=== PATIENT | female | born 1985 | race Caucasian/White ===

== ENCOUNTER 2017-07-08 20:17 | Emergency (ER) | payer MEDICAID ==
--- NOTE | 2017-07-08 21:12 | EDM.PDOC ---
ED HPI GENERAL MEDICAL PROBLEM - General Chief Complaint: Abdominal Pain Stated Complaint: ABDOMINAL PAIN Time Seen by Provider: 07/08/17 21:02 Source of Information: Reports: Patient History Limitations: Reports: No Limitations - History of Present Illness INITIAL COMMENTS - FREE TEXT/NARRATIVE: History of present illness: [2-year-old female comes in complaining of lower pelvic pain, urgency burning and frequency and concerns of being .] Review of systems: As per history of present illness and below otherwise all systems reviewed and negative. Past medical history: As per history of present illness and as reviewed below otherwise noncontributory. Surgical history: As per history of present illness and as reviewed below otherwise noncontributory. Social history: No reported history of drug or alcohol abuse. Family history: As per history of present illness and as reviewed below otherwise noncontributory. Physical exam: HEENT: Atraumatic, normocephalic, pupils reactive, negative for conjunctival pallor or scleral icterus, mucous membranes moist, throat clear, neck supple, nontender, trachea midline. Lungs: Clear to auscultation, breath sounds equal bilaterally, chest nontender. Heart: S1S2, regular, negative for clicks, rubs, or JVD. Abdomen: Soft, nondistended, nontender. Negative for masses or hepatosplenomegaly. Negative for costovertebral tenderness. Pelvis: Stable nontender. Genitourinary: Deferred. Rectal: Deferred. Extremities: Atraumatic, negative for cords or calf pain. Neurovascular unremarkable. Neuro: Awake, alert, oriented. Cranial nerves II through XII unremarkable. Cerebellum unremarkable. Motor and sensory unremarkable throughout. Exam nonfocal. Diagnostics: [UA, urine hCG] Therapeutics: [] Impression: [#1 positive #2 UTI] Plan: [Antibiotic follow-up with PCP] Definitive disposition and diagnosis as appropriate pending reevaluation and review of above. Lower Abdominal Pain Score (Numeric/FACES): 5 - Related Data Allergies Allergy/AdvReac Type Severity Reaction Status Date / Time No Known Allergies Allergy Verified 07/08/17 20:49 Home Meds: Home Meds Albuterol [Ventolin HFA] 07/08/17 [History] ClonazePAM [KlonoPIN] 07/08/17 [History] Escitalopram [Lexapro] 07/08/17 [History] Nitrofurantoin Monohyd/M-Cryst [Macrobid 100 mg Capsule] 100 mg PO BID #20 capsule 07/08/17 [Rx] lamoTRIgine [Lamotrigine] 07/08/17 [History] risperiDONE [RisperiDAL] 07/08/17 [History] Past Medical History HEENT History: Reports: None Cardiovascular History: Reports: None Respiratory History: Reports: Asthma Gastrointestinal History: Reports: None Genitourinary History: Reports: None Musculoskeletal History: Reports: None Neurological History: Reports: Other (See Below) Other Neuro History: fibromyalgia Psychiatric History: Reports: ADHD, Bipolar, Depression Endocrine/Metabolic History: Reports: None Dermatologic History: Reports: None - Infectious Disease History Infectious Disease History: Reports: None - Past Surgical History HEENT Surgical History: Reports: None Respiratory Surgical History: Reports: None Musculoskeletal Surgical History: Reports: None Social & Family History - Tobacco Use Smoking Status *Q: Current Every Day Smoker Years of Tobacco use: 11 Packs/Tins Daily: 0.5 ED ROS GENERAL - Review of Systems Review Of Systems: See Below (See history of present illness) ED EXAM, GI/ABD - Physical Exam Exam: See Below (See history of present illness) Course - Vital Signs Last Recorded V/S: Last Vital Signs Temp 36.5 C 07/08/17 20:50 Pulse 87 07/08/17 20:50 Resp 16 07/08/17 20:50 BP 119/61 07/08/17 20:50 Pulse Ox 99 07/08/17 20:50 - Orders/Labs/Meds Orders: Active Orders 24 hr Category Date Time Status HCG QUALITATIVE,URINE [URCHEM] Stat Lab 07/08/17 20:46 Uncollected Labs: Laboratory Tests 07/08/17 Range/Units 20:35 Urine Color YELLOW Urine Appearance SLT CLOUDY Urine pH 5.5 (5.0-8.0) Ur Specific [place] >= 1.030 (1.001-1.035) Urine Protein NEGATIVE (NEGATIVE) mg/dL Urine Glucose (UA) NEGATIVE (NEGATIVE) mg/dL Urine Ketones TRACE H (NEGATIVE) mg/dL Urine Occult Blood SMALL H (NEGATIVE) Urine Nitrite NEGATIVE (NEGATIVE) Urine Bilirubin NEGATIVE (NEGATIVE) Urine Urobilinogen 0.2 (<2.0) EU/dL Ur Leukocyte Esterase TRACE (NEGATIVE) Urine RBC 1-3 (0-2/HPF) Urine WBC 10-15 (0-5/HPF) Ur Epithelial Cells MANY (NONE-FEW) Urine Bacteria FEW (NEGATIVE) Urine Mucus HEAVY (NONE-MOD) Departure - Departure Time of Disposition: 21:33 Disposition: Home, Self-Care 01 Condition: Good Clinical Impression: Abdominal pain, UTI (urinary tract infection) - Discharge Information Referrals: PCP,None [Primary Care Provider] - Additional Instructions: The following information is given to patients seen in the emergency department who are being discharged to home. This information is to outline your options for follow-up care. We provide all patients seen in our emergency department with a follow-up referral. The need for follow-up, as well as the timing and circumstances, are variable depending upon the specifics of your emergency department visit. If you don't have a primary care physician on staff, we will provide you with a referral. We always advise you to contact your personal physician following an emergency department visit to inform them of the circumstance of the visit and for follow-up with them and/or the need for any referrals to a consulting specialist. The emergency department will also refer you to a specialist when appropriate. This referral assures that you have the opportunity for follow-up care with a specialist. All of these measure are taken in an effort to provide you with optimal care, which includes your follow-up. Under all circumstances we always encourage you to contact your private physician who remains a resource for coordinating your care. When calling for follow-up care, please make the office aware that this follow-up is from your recent emergency room visit. If for any reason you are refused follow-up, please contact the [facility] Emergency Department at and asked to speak to the emergency department charge nurse. Take medication as directed Follow-up with PCP 1-2 days as directed Return to ED as needed as directed - My Orders Last 24 Hours: My Active Orders 07/08/17 20:46 HCG QUALITATIVE,URINE [URCHEM] Stat - Assessment/Plan Last 24 Hours: My Active Orders 07/08/17 20:46 HCG QUALITATIVE,URINE [URCHEM] Stat
== END 2017-07-08 21:45 | disposition home or self-care (01) ==
LOC: MW.ED 20:17
DX: N39.0 Urinary tract infection, site not specified (principal); Z32.01 Encounter for pregnancy test, result positive; F17.210 Nicotine dependence, cigarettes, uncomplicated
CPT/HCPCS: 81001; 81025; 99283; 99284

== ENCOUNTER 2017-07-24 03:49 | Emergency (ER) | payer MEDICAID ==
[2017-07-24] MEDS ORDERED: Sodium Chloride 0.9% 1,000 ML IV ONE (04:29)
--- NOTE | 2017-07-24 04:35 | EDM.PDOC ---
ED HPI GENERAL MEDICAL PROBLEM - General Stated Complaint: PT SAY SHE IS ABOUT 4WKS AND IS IN PAIN Time Seen by Provider: 07/24/17 06:48 - History of Present Illness INITIAL COMMENTS - FREE TEXT/NARRATIVE: HISTORY AND PHYSICAL: History of present illness: Patient 32-year-old female reports one month who presents with a concern of lower abdominal pain no vaginal bleeding no other complaints she denies trauma denies fever chills vomiting urinary symptoms or other concern Review of systems: As per history of present illness and below otherwise all systems reviewed and negative. Past medical history: As per history of present illness and as reviewed below otherwise noncontributory. Surgical history: As per history of present illness and as reviewed below otherwise noncontributory. Social history: No reported history of drug or alcohol abuse. Family history: As per history of present illness and as reviewed below otherwise noncontributory. Physical exam: HEENT: Atraumatic, normocephalic, pupils reactive, mild conjunctival pallor no scleral icterus, mucous membranes dry, throat clear, neck supple, nontender, trachea midline. Lungs: Clear to auscultation, breath sounds equal bilaterally, chest nontender. Heart: S1S2, regular, negative for clicks, rubs, or JVD. Abdomen: Soft, nondistended, no localized tenderness. Negative for masses or hepatosplenomegaly. Negative for costovertebral tenderness. Pelvis: Stable nontender. Genitourinary: Deferred. Rectal: Deferred. Extremities: Atraumatic, negative for cords or calf pain. Neurovascular unremarkable. Neuro: Awake, alert, oriented. Cranial nerves II through XII unremarkable. Cerebellum unremarkable. Motor and sensory unremarkable throughout. Exam nonfocal. Diagnostics: CBC CMP UA urine drug screen type and screen pelvic ultrasound Therapeutics: Normal saline 1 L bolus Impression: #1 first trimester #2 abdominal pain Definitive disposition and diagnosis as appropriate pending reevaluation and review of above. - Related Data Allergies Allergy/AdvReac Type Severity Reaction Status Date / Time No Known Allergies Allergy Verified 07/24/17 05:01 Home Meds: Home Meds Albuterol [Ventolin HFA] 1 inh INH BID PRN 07/08/17 [History] ClonazePAM [KlonoPIN] 1 mg PO DAILY 07/08/17 [History] Escitalopram [Lexapro] 10 mg PO DAILY PRN 07/08/17 [History] lamoTRIgine [Lamotrigine] 25 mg PO BID 07/08/17 [History] risperiDONE [RisperiDAL] 0.25 mg PO DAILY 07/08/17 [History] Past Medical History HEENT History: Reports: None Cardiovascular History: Reports: None Respiratory History: Reports: Asthma Gastrointestinal History: Reports: None Genitourinary History: Reports: None Musculoskeletal History: Reports: None Neurological History: Reports: Other (See Below) Other Neuro History: fibromyalgia Psychiatric History: Reports: ADHD, Bipolar, Depression Endocrine/Metabolic History: Reports: None Dermatologic History: Reports: None - Infectious Disease History Infectious Disease History: Reports: None - Past Surgical History HEENT Surgical History: Reports: None Respiratory Surgical History: Reports: None Musculoskeletal Surgical History: Reports: None Social & Family History - Tobacco Use Smoking Status *Q: Current Every Day Smoker Years of Tobacco use: 11 Packs/Tins Daily: 0.5 ED ROS GENERAL - Review of Systems Review Of Systems: ROS reveals no pertinent complaints other than HPI. ED EXAM, GENERAL - Physical Exam Exam: See Below (See dictation) Course - Vital Signs Last Recorded V/S: Last Vital Signs Temp 36.8 C 07/24/17 04:20 Pulse 86 07/24/17 04:20 Resp 19 07/24/17 04:20 BP 133/64 07/24/17 04:20 Pulse Ox 98 07/24/17 04:20 - Orders/Labs/Meds Orders: Active Orders 24 hr Category Date Time Status OB 1st Tri Sgl 1st Gest [US] Stat Exams 07/24/17 04:29 Taken Labs: Laboratory Tests 07/24/17 07/24/17 07/24/17 Range/Units 04:33 04:33 04:33 WBC 13.98 H (4.0-11.0) K/uL RBC 4.66 (4.30-5.90) M/uL Hgb 12.9 (12.0-16.0) g/dL Hct 38.5 (36.0-46.0) % MCV 82.6 (80.0-98.0) fL MCH 27.7 (27.0-32.0) pg MCHC 33.5 (31.0-37.0) g/dL RDW Std Deviation 38.9 (28.0-62.0) fl RDW Coeff of Ke[place] 13 (11.0-15.0) % Plt Count 278 (150-400) K/uL MPV 10.40 (7.40-12.00) fL Neut % (Auto) 71.3 (48.0-80.0) % Lymph % (Auto) 21.7 (16.0-40.0) % Saline % (Auto) 5.7 (0.0-15.0) % Eos % (Auto) 1.1 (0.0-7.0) % Baso % (Auto) 0.2 (0.0-1.5) % Neut # (Auto) 10.0 H (1.4-5.7) K/uL Lymph # (Auto) 3.0 H (0.6-2.4) K/uL Saline # (Auto) 0.8 (0.0-0.8) K/uL Eos # (Auto) 0.2 (0.0-0.7) K/uL Baso # (Auto) 0.0 (0.0-0.1) K/uL Nucleated RBC % 0.0 /100WBC Nucleated RBCs # 0 K/uL Sodium 140 (136-146) mmol/L Potassium 3.4 L (3.5-5.1) mmol/L Chloride 108 (98-110) mmol/L Carbon Dioxide 22 (21-31) mmol/L BUN 10 (6.0-23.0) mg/dL Creatinine 0.8 (0.6-1.5) mg/dL Est Cr Clr Drug Dosing TNP Estimated GFR (MDRD) > 60.0 ml/min Glucose 98 (60-110) mg/dL Calcium 9.3 (8.8-10.8) mg/dL Total Bilirubin 0.6 (0.1-1.5) mg/dL AST 13 (5-40) IU/L ALT 14 (8-54) IU/L Alkaline Phosphatase 58 (40-150) Total Protein 7.2 (6.0-8.0) g/dL Albumin 4.2 (3.5-5.0) g/dL Globulin 3.0 (2.0-3.5) g/dL Albumin/Globulin Ratio 1.4 (1.3-2.8) HCG, Quant 1422.0 mIU/mL Urine Color Urine Appearance Urine pH (5.0-8.0) Ur Specific [place] (1.001-1.035) Urine Protein (NEGATIVE) mg/dL Urine Glucose (UA) (NEGATIVE) mg/dL Urine Ketones (NEGATIVE) mg/dL Urine Occult Blood (NEGATIVE) Urine Nitrite (NEGATIVE) Urine Bilirubin (NEGATIVE) Urine Urobilinogen (<2.0) EU/dL Ur Leukocyte Esterase (NEGATIVE) Urine RBC (0-2/HPF) Urine WBC (0-5/HPF) Ur Epithelial Cells (NONE-FEW) Urine Bacteria (NEGATIVE) Urine Mucus (NONE-MOD) Urine Opiates Screen (NEGATIVE) Ur Oxycodone Screen (NEGATIVE) Urine Methadone Screen (NEGATIVE) Ur Barbiturates Screen (NEGATIVE) Ur Phencyclidine Scrn (NEGATIVE) Ur Amphetamine Screen (NEGATIVE) U Methamphetamines Scrn (NEGATIVE) U Benzodiazepines Scrn (NEGATIVE) U Cocaine Metab Screen (NEGATIVE) U Marijuana (THC) Screen (NEGATIVE) Blood Type O POSITIVE Antibody Screen NEGATIVE 07/24/17 07/24/17 Range/Units 05:58 05:58 WBC (4.0-11.0) K/uL RBC (4.30-5.90) M/uL Hgb (12.0-16.0) g/dL Hct (36.0-46.0) % MCV (80.0-98.0) fL MCH (27.0-32.0) pg MCHC (31.0-37.0) g/dL RDW Std Deviation (28.0-62.0) fl RDW Coeff of Keily (11.0-15.0) % Plt Count (150-400) K/uL MPV (7.40-12.00) fL Neut % (Auto) (48.0-80.0) % Lymph % (Auto) (16.0-40.0) % Saline % (Auto) (0.0-15.0) % Eos % (Auto) (0.0-7.0) % Baso % (Auto) (0.0-1.5) % Neut # (Auto) (1.4-5.7) K/uL Lymph # (Auto) (0.6-2.4) K/uL Saline # (Auto) (0.0-0.8) K/uL Eos # (Auto) (0.0-0.7) K/uL Baso # (Auto) (0.0-0.1) K/uL Nucleated RBC % /100WBC Nucleated RBCs # K/uL Sodium (136-146) mmol/L Potassium (3.5-5.1) mmol/L Chloride (98-110) mmol/L Carbon Dioxide (21-31) mmol/L BUN (6.0-23.0) mg/dL Creatinine (0.6-1.5) mg/dL Est Cr Clr Drug Dosing Estimated GFR (MDRD) ml/min Glucose (60-110) mg/dL Calcium (8.8-10.8) mg/dL Total Bilirubin (0.1-1.5) mg/dL AST (5-40) IU/L ALT (8-54) IU/L Alkaline Phosphatase (40-150) Total Protein (6.0-8.0) g/dL Albumin (3.5-5.0) g/dL Globulin (2.0-3.5) g/dL Albumin/Globulin Ratio (1.3-2.8) HCG, Quant mIU/mL Urine Color YELLOW Urine Appearance CLEAR Urine pH 6.0 (5.0-8.0) Ur Specific [place] 1.025 (1.001-1.035) Urine Protein NEGATIVE (NEGATIVE) mg/dL Urine Glucose (UA) NEGATIVE (NEGATIVE) mg/dL Urine Ketones 15 H (NEGATIVE) mg/dL Urine Occult Blood NEGATIVE (NEGATIVE) Urine Nitrite NEGATIVE (NEGATIVE) Urine Bilirubin NEGATIVE (NEGATIVE) Urine Urobilinogen 0.2 (<2.0) EU/dL Ur Leukocyte Esterase NEGATIVE (NEGATIVE) Urine RBC 0-2 (0-2/HPF) Urine WBC 1-2 (0-5/HPF) Ur Epithelial Cells FEW (NONE-FEW) Urine Bacteria FEW (NEGATIVE) Urine Mucus FEW (NONE-MOD) Urine Opiates Screen NEGATIVE (NEGATIVE) Ur Oxycodone Screen NEGATIVE (NEGATIVE) Urine Methadone Screen NEGATIVE (NEGATIVE) Ur Barbiturates Screen NEGATIVE (NEGATIVE) Ur Phencyclidine Scrn NEGATIVE (NEGATIVE) Ur Amphetamine Screen POSITIVE (NEGATIVE) U Methamphetamines Scrn NEGATIVE (NEGATIVE) U Benzodiazepines Scrn NEGATIVE (NEGATIVE) U Cocaine Metab Screen NEGATIVE (NEGATIVE) U Marijuana (THC) Screen POSITIVE (NEGATIVE) Blood Type Antibody Screen Meds: Medications Discontinued Medications Generic Name Dose Route Start Last Admin Trade Name Natasha PRN Reason Stop Dose Admin Sodium Chloride 1,000 mls @ 999 mls/hr 07/24/17 04:29 07/24/17 04:41 Normal Saline IV 07/24/17 05:29 999 mls/hr STAT ONE Administration Departure - Departure Time of Disposition: 06:48 Disposition: Eloped 07 Condition: Undetermined Clinical Impression: First trimester , Abdominal pain - Discharge Information Referrals: PCP,None [Primary Care Provider] - - My Orders Last 24 Hours: My Active Orders 07/24/17 04:29 OB 1st Tri Sgl 1st Gest [US] Stat - Assessment/Plan Last 24 Hours: My Active Orders 07/24/17 04:29 OB 1st Tri Sgl 1st Gest [US] Stat
[2017-07-24 04:59] LABS: CHLORIDE,CL 108 mmol/L (98-110); SODIUM,NA 140 mmol/L (136-146)
--- NOTE | 2017-07-24 14:44 | US ---
EXAM DATE: 07/24/17 PATIENT'S AGE: 32 Patient: LORE ECHAVARRIA Facility: [place], [place] : 1985 Study: OB Pelvis [id number] 5:35:11 AM Ordering Physician: Doctor Unger Final Report: INDICATION: Early , abdominal pain TECHNIQUE: Ultrasound OB pelvis transvaginal. Real-time boyd-scale imaging of the pelvis was performed. COMPARISON: None FINDINGS: Sonographic imaging demonstrates a round hypodensity within the uterus measuring 0.4 cm in diameter. The myometrium is normal in echogenicity. The ovaries are of normal size. There is normal venous and arterial flow in the left ovary. The right ovary demonstrates decreased venous and arterial waveforms. There are no suspicious fluid collections noted in the cul-de-sac. IMPRESSION: 1. Round hyperdensity within the uterus. This may represent a gestational sac which would correspond to a of 4 weeks 6 days. 2. Decreased venous and arterial waveforms in the right ovary. Ovarian torsion cannot be excluded. These findings were discussed with Dr. Corrales at 6:40am on 07/24/2017. Dictated by Teresa Pinon MD @ Jul 24 2017 6:23AM (Electronic Signature) Report Signed by Proxy. ANDRADE
== END 2017-07-24 06:48 | disposition left against medical advice (07) ==
LOC: MW.ED 03:49
DX: O99.89 Other specified diseases and conditions complicating pregnancy, childbirth and the puerperium (principal); R10.30 Lower abdominal pain, unspecified; O99.331 Smoking (tobacco) complicating pregnancy, first trimester; F17.210 Nicotine dependence, cigarettes, uncomplicated; Z79.899 Other long term (current) drug therapy; Z3A.01 Less than 8 weeks gestation of pregnancy
CPT/HCPCS: 36415; 76801; 80053; 80305; 81001; 84702; 85025; 86850; 86900; 86901; 99284; J7040; 99283

== ENCOUNTER 2017-08-02 20:26 | Emergency (ER) | payer MEDICAID ==
--- NOTE | 2017-08-02 20:36 | EDM.PDOC ---
<Deyvi Campos - Last Filed: 08/02/17 22:03> ED HPI GENERAL MEDICAL PROBLEM - General Chief Complaint: [employer] Problem Stated Complaint: 5 WEEKS/BLEEDING Time Seen by Provider: 08/02/17 20:31 Source of Information: Reports: Patient History Limitations: Reports: No Limitations - History of Present Illness INITIAL COMMENTS - FREE TEXT/NARRATIVE: History of present illness: [32-year-old female comes in with complaints of vaginal bleeding and extreme cramping. Patient indicates she is approximately 5 weeks and has been cramping and bleeding and saturating a pad an hour through today.] Review of systems: As per history of present illness and below otherwise all systems reviewed and negative. Past medical history: As per history of present illness and as reviewed below otherwise noncontributory. Surgical history: As per history of present illness and as reviewed below otherwise noncontributory. Social history: No reported history of drug or alcohol abuse. Family history: As per history of present illness and as reviewed below otherwise noncontributory. Physical exam: HEENT: Atraumatic, normocephalic, pupils reactive, negative for conjunctival pallor or scleral icterus, mucous membranes moist, throat clear, neck supple, nontender, trachea midline. Lungs: Clear to auscultation, breath sounds equal bilaterally, chest nontender. Heart: S1S2, regular, negative for clicks, rubs, or JVD. Abdomen: Slightly firm exquisitely tender abdomen. Pt indicates it is a stabbing cramp like pain. Unable to appreciate masses or hepatospleenomegaly. Pelvis: Stable nontender. Genitourinary: Deferred. Rectal: Deferred. Extremities: Atraumatic, negative for cords or calf pain. Neurovascular unremarkable. Neuro: Awake, alert, oriented. Cranial nerves II through XII unremarkable. Cerebellum unremarkable. Motor and sensory unremarkable throughout. Exam nonfocal. Rh is noted to be positive from previous test muscle repeat testing will not be performed this visit. Diagnostics: [CBC, CMP, serum quantitative, transvaginal ultrasound] Therapeutics: [IV fluid, morphine, Zofran, Ativan, Dilaudid] Impression: [Spontaneous AB] Plan: [Follow-up with [employer]] Definitive disposition and diagnosis as appropriate pending reevaluation and review of above. - Related Data Allergies Allergy/AdvReac Type Severity Reaction Status Date / Time No Known Allergies Allergy Verified 08/02/17 20:35 Home Meds: Home Meds Albuterol [Ventolin HFA] 1 inh INH BID PRN 07/08/17 [History] ClonazePAM [KlonoPIN] 1 mg PO DAILY 07/08/17 [History] Escitalopram [Lexapro] 10 mg PO DAILY PRN 07/08/17 [History] lamoTRIgine [Lamotrigine] 25 mg PO BID 07/08/17 [History] risperiDONE [RisperiDAL] 0.25 mg PO DAILY 07/08/17 [History] Past Medical History HEENT History: Reports: None Cardiovascular History: Reports: None Respiratory History: Reports: Asthma Gastrointestinal History: Reports: None Genitourinary History: Reports: None [employer] History: Reports: Musculoskeletal History: Reports: None Neurological History: Reports: Other (See Below) Other Neuro History: fibromyalgia Psychiatric History: Reports: ADHD, Bipolar, Depression Endocrine/Metabolic History: Reports: None Dermatologic History: Reports: None - Infectious Disease History Infectious Disease History: Reports: None - Past Surgical History HEENT Surgical History: Reports: None Respiratory Surgical History: Reports: None Musculoskeletal Surgical History: Reports: None Social & Family History - Family History Family Medical History: Noncontributory - Tobacco Use Smoking Status *Q: Current Every Day Smoker Years of Tobacco use: 11 Packs/Tins Daily: 0.5 Second Hand Smoke Exposure: No - Caffeine Use Caffeine Use: Reports: None - Recreational Drug Use Recreational Drug Use: No ED ROS GENERAL - Review of Systems Review Of Systems: See Below (History of present illness) ED EXAM, GENERAL - Physical Exam Exam: See Below (See history of present illness) Course - Vital Signs Last Recorded V/S: Last Vital Signs Temp 37.8 C 08/02/17 20:31 Pulse 91 08/02/17 21:52 Resp 18 08/02/17 21:52 BP 137/86 08/02/17 21:52 Pulse Ox 99 08/02/17 21:52 - Orders/Labs/Meds Orders: Active Orders 24 hr Category Date Time Status OB 1st Tri Sgl 1st Gest [US] Stat Exams 08/02/17 20:29 Taken Labs: Laboratory Tests 08/02/17 08/02/17 08/02/17 Range/Units 20:40 20:40 20:40 WBC 14.12 H (4.0-11.0) K/uL RBC 4.94 (4.30-5.90) M/uL Hgb 13.8 (12.0-16.0) g/dL Hct 41.7 (36.0-46.0) % MCV 84.4 (80.0-98.0) fL MCH 27.9 (27.0-32.0) pg MCHC 33.1 (31.0-37.0) g/dL RDW Std Deviation 41.0 (28.0-62.0) fl RDW Coeff of Keily 14 (11.0-15.0) % Plt Count 360 (150-400) K/uL MPV 10.10 (7.40-12.00) fL Neut % (Auto) 68.6 (48.0-80.0) % Lymph % (Auto) 24.2 (16.0-40.0) % Walton % (Auto) 6.2 (0.0-15.0) % Eos % (Auto) 0.8 (0.0-7.0) % Baso % (Auto) 0.2 (0.0-1.5) % Neut # (Auto) 9.7 H (1.4-5.7) K/uL Lymph # (Auto) 3.4 H (0.6-2.4) K/uL Walton # (Auto) 0.9 H (0.0-0.8) K/uL Eos # (Auto) 0.1 (0.0-0.7) K/uL Baso # (Auto) 0.0 (0.0-0.1) K/uL Nucleated RBC % 0.0 /100WBC Nucleated RBCs # 0 K/uL HCG, Quant 780.0 mIU/mL Urine Color YELLOW Urine Appearance SLT CLOUDY Urine pH 6.0 (5.0-8.0) Ur Specific Margaret 1.025 (1.001-1.035) Urine Protein TRACE (NEGATIVE) mg/dL Urine Glucose (UA) NEGATIVE (NEGATIVE) mg/dL Urine Ketones NEGATIVE (NEGATIVE) mg/dL Urine Occult Blood LARGE H (NEGATIVE) Urine Nitrite NEGATIVE (NEGATIVE) Urine Bilirubin NEGATIVE (NEGATIVE) Urine Urobilinogen 0.2 (<2.0) EU/dL Ur Leukocyte Esterase SMALL (NEGATIVE) Urine RBC 40-50 (0-2/HPF) Urine WBC 8-10 (0-5/HPF) Ur Epithelial Cells MANY (NONE-FEW) Urine Bacteria FEW (NEGATIVE) Urine Mucus HEAVY (NONE-MOD) Urine Opiates Screen (NEGATIVE) Ur Oxycodone Screen (NEGATIVE) Urine Methadone Screen (NEGATIVE) Ur Barbiturates Screen (NEGATIVE) Ur Phencyclidine Scrn (NEGATIVE) Ur Amphetamine Screen (NEGATIVE) U Methamphetamines Scrn (NEGATIVE) U Benzodiazepines Scrn (NEGATIVE) U Cocaine Metab Screen (NEGATIVE) U Marijuana (THC) Screen (NEGATIVE) 08/02/17 Range/Units 20:40 WBC (4.0-11.0) K/uL RBC (4.30-5.90) M/uL Hgb (12.0-16.0) g/dL Hct (36.0-46.0) % MCV (80.0-98.0) fL MCH (27.0-32.0) pg MCHC (31.0-37.0) g/dL RDW Std Deviation (28.0-62.0) fl RDW Coeff of Keily (11.0-15.0) % Plt Count (150-400) K/uL MPV (7.40-12.00) fL Neut % (Auto) (48.0-80.0) % Lymph % (Auto) (16.0-40.0) % Walton % (Auto) (0.0-15.0) % Eos % (Auto) (0.0-7.0) % Baso % (Auto) (0.0-1.5) % Neut # (Auto) (1.4-5.7) K/uL Lymph # (Auto) (0.6-2.4) K/uL Walton # (Auto) (0.0-0.8) K/uL Eos # (Auto) (0.0-0.7) K/uL Baso # (Auto) (0.0-0.1) K/uL Nucleated RBC % /100WBC Nucleated RBCs # K/uL HCG, Quant mIU/mL Urine Color Urine Appearance Urine pH (5.0-8.0) Ur Specific Margaret (1.001-1.035) Urine Protein (NEGATIVE) mg/dL Urine Glucose (UA) (NEGATIVE) mg/dL Urine Ketones (NEGATIVE) mg/dL Urine Occult Blood (NEGATIVE) Urine Nitrite (NEGATIVE) Urine Bilirubin (NEGATIVE) Urine Urobilinogen (<2.0) EU/dL Ur Leukocyte Esterase (NEGATIVE) Urine RBC (0-2/HPF) Urine WBC (0-5/HPF) Ur Epithelial Cells (NONE-FEW) Urine Bacteria (NEGATIVE) Urine Mucus (NONE-MOD) Urine Opiates Screen NEGATIVE (NEGATIVE) Ur Oxycodone Screen NEGATIVE (NEGATIVE) Urine Methadone Screen NEGATIVE (NEGATIVE) Ur Barbiturates Screen NEGATIVE (NEGATIVE) Ur Phencyclidine Scrn NEGATIVE (NEGATIVE) Ur Amphetamine Screen POSITIVE (NEGATIVE) U Methamphetamines Scrn NEGATIVE (NEGATIVE) U Benzodiazepines Scrn NEGATIVE (NEGATIVE) U Cocaine Metab Screen NEGATIVE (NEGATIVE) U Marijuana (THC) Screen POSITIVE (NEGATIVE) Meds: Medications Discontinued Medications Generic Name Dose Route Start Last Admin Trade Name Freq PRN Reason Stop Dose Admin Hydromorphone HCl 2 mg 08/02/17 21:32 08/02/17 21:40 Dilaudid IVPUSH 08/02/17 21:33 2 mg ONETIME ONE Administration Prochlorperazine Edisylate 10 52 mls @ 150 mls/hr 08/02/17 21:33 mg/ Sodium Chloride IV 08/02/17 21:53 ONETIME ONE Lorazepam 2 mg 08/02/17 21:36 08/02/17 21:40 Ativan IVPUSH 08/02/17 21:37 2 mg ONETIME ONE Administration Morphine Sulfate 2 mg 08/02/17 20:38 08/02/17 20:49 Morphine IVPUSH 08/02/17 20:39 2 mg ONETIME ONE Administration Ondansetron HCl 4 mg 08/02/17 20:38 08/02/17 20:49 Zofran IVPUSH 08/02/17 20:39 4 mg ONETIME ONE Administration Departure - Departure Disposition: Home, Self-Care 01 Clinical Impression: Missed ab - Discharge Information Referrals: PCP,None [Primary Care Provider] - Forms: ED Department Discharge Additional Instructions: The following information is given to patients seen in the emergency department who are being discharged to home. This information is to outline your options for follow-up care. We provide all patients seen in our emergency department with a follow-up referral. The need for follow-up, as well as the timing and circumstances, are variable depending upon the specifics of your emergency department visit. If you don't have a primary care physician on staff, we will provide you with a referral. We always advise you to contact your personal physician following an emergency department visit to inform them of the circumstance of the visit and for follow-up with them and/or the need for any referrals to a consulting specialist. The emergency department will also refer you to a specialist when appropriate. This referral assures that you have the opportunity for followup care with a specialist. All of these measure are taken in an effort to provide you with optimal care, which includes your followup. Under all circumstances we always encourage you to contact your private physician who remains a resource for coordinating your care. When calling for followup care, please make the office aware that this follow-up is from your recent emergency room visit. If for any reason you are refused follow-up, please contact the [facility] emergency department at and ask to speak to the emergency department charge nurse. [facility] [address] [address] Please go for a repeat blood tests as we discussed in 2 days. Please call and follow-up with Dr. Badillo in our clinic using resources to given to above. Please use pain medications, Everly, as prescribed as well as [id number] ibuprofen and return to ER if he started passing heavy clots or tissue and as needed and as discussed. <Faby Salas - Last Filed: 08/02/17 23:53> ED HPI GENERAL MEDICAL PROBLEM - History of Present Illness INITIAL COMMENTS - FREE TEXT/NARRATIVE: This is Dr. Salas dictating an addendum note as the supervising physician on this case and I assumed care of this case at 2200 hrs. I've reviewed the prior visit here on July 24 or she presented with and abdominal pain and at that point she had a WBC count of 13.9, hemoglobin of 12.9 and a serum quantitative hCG of 1422 as well as a blood type of O+. Her ultrasound at that time did indicate a small structure which was believed to be a gestational sac sac although there were no identifying markers and there was some question of decreased blood flow to the right ovary. At that point was recommended that the patient be seen by gynecology at the patient did not stay for that visit. She returns today with the above history. As her serum quantitative hCG is falling this is obviously not progressing. On my personal exam patient did have some diffuse tenderness but there was no rebound or guarding. On pelvic exam there was normal external genitalia and a scant amount of red blood in the vault and the os was closed and there was no tissue. Ultrasound was performed which revealed good blood flow to both ovaries and there still is a small gestational sac seen without any pole or cardiac activity which corresponds to 5 weeks 0 days. This is likely a failed and the patient will be advised to follow-up with our clinic and have serial Quant hCG's to document its fall to 0. As the flow to both ovaries is improved the patient can be discharged home. Will prescribe her a few pain pills and stressed to her need for follow-up. [id number]: I discussed this case with Dr. Badillo and he will follow the patient the clinic. I will give her a prescription to have her blood test repeated and advised her on reasons to return. Please addend the impression listed by the nurse practitioner to read: Failed , missed AB Abdominal Pain Score (Numeric/FACES): 8 ED ROS GENERAL - Review of Systems Review Of Systems: ROS reveals no pertinent complaints other than HPI. Departure - Departure Time of Disposition: 23:20 Condition: Good
[2017-08-02] MEDS ORDERED: Morphine 2 MG/ML Syringe IVPUSH ONE (20:38)
[2017-08-02] MEDS ORDERED: Ondansetron 4 MG/2 ML SDV IVPUSH ONE (20:38)
[2017-08-02] MEDS ORDERED: HYDROmorphone 2 MG/ML Syringe IVPUSH ONE (21:32)
[2017-08-02] MEDS ORDERED: Prochlorperazine 10 MG in Sodium Chloride 0.9% 50 ML IV ONE (21:33)
[2017-08-02] MEDS ORDERED: LORazepam 2 MG/ML SDV IVPUSH ONE (21:36)
--- NOTE | 2017-08-03 10:47 | US ---
EXAM DATE: 08/02/17 PATIENT'S AGE: 32 Patient: LORE ECHAVARRIA Facility: [place], [place] Site . Site : [id number] Study: OB Pelvis [id number]/13/2017 10:36:57 PM Ordering Physician: Doctor Unger Final Report: INDICATION: WITH BLEEDING. HCG LEVEL 700 TECHNIQUE: Ultrasound OB pelvis transvaginal. Real time boyd scale imaging of the pelvis was performed. COMPARISON: Recent OB ultrasound dated 07/24/2017. FINDINGS: Decidual reaction with presumed intrauterine gestational sac. Mean gestational sac diameter corresponds to 0.51 centimeters, estimated gestational age of 5 weeks 0 days. Likely small yolk sac, measuring 0.13 centimeters. No pole or cardiac activity. No prior gestational hemorrhage. LMP reported as 06/20/2017 with clinical gestational age of 6 weeks 1 day. Arterial and venous flow to both ovaries preserved. Asymmetric prominent vascular structure in the right adnexal region. Left ovarian cyst, measuring 1.5 centimeters. IMPRESSION: 1. Likely intrauterine gestational sac, corresponding to estimated gestational age of 5 weeks 0 days. No significant growth from prior OB ultrasound on 2016. No pole or cardiac activity identified. Findings may represent failed 1st trimester with clinical history of vaginal bleeding versus early . Consider continued clinical followup with repeat ultrasound in 1 week and correlation with HCG levels to evaluate for viability and confirm dating. 2. Arterial and venous flow to both ovaries intact on current study. Dictated by Matt James MD @ 08/02/2017 11:16:26 PM Dictated by: Matt James MD @ 08/02/2017 23:16:42 ----- ADDENDUM ----- ADDENDUM: 1. ANISH Arzate confirmed report receipt on 08/02/2017 at 11:20pm [employer]. Dictated by Matt James MD @ Aug 02 2017 11:23PM (Electronic Signature) Report Signed by Proxy. ANDRADE
== END 2017-08-03 00:10 | disposition home or self-care (01) ==
LOC: MW.ED 20:26
DX: O02.1 Missed abortion (principal); F17.210 Nicotine dependence, cigarettes, uncomplicated; Z79.899 Other long term (current) drug therapy; Z3A.01 Less than 8 weeks gestation of pregnancy
CPT/HCPCS: 36415; 76801; 80305; 81001; 84702; 85025; 96374; 96375; 99284; J1170; J2060; J2270; J2405; 99283

== ENCOUNTER 2019-11-19 17:13 | Emergency (ER) | payer MEDICAID ==
--- NOTE | 2019-11-19 17:24 | EDM.PDOC ---
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 Patient reports that her last menstrual period was mid July 2019. She states she took a test on which was positive. Thinks she is about 14 weeks . She reports that she has irregular menstrual periods and is unsure how far along she would be. Over the past several weeks she states she has had large amounts of watery discharge from the vagina. A few days ago she had "a little bit" of bloody discharge. No current vaginal bleeding, but does have suprapubic pain. Patient has not received any care. She is also requesting for her medication for her depression and bipolar be refilled stating "nobody will refill these" - she is unclear of when she last took these medications. She states if she is , she does not want them refilled. She does not have a primary care provider in the area. G 2: P 1 Review of systems: As per history of present illness and below otherwise all systems reviewed and negative. Past medical history: As per history of present illness and as reviewed below otherwise noncontributory. Surgical history: As per history of present illness and as reviewed below otherwise noncontributory. Social history: See social history for further information Family history: As per history of present illness and as reviewed below otherwise noncontributory. Physical exam: General: Well-developed and well-nourished 34-year-old female. Alert and oriented. Nontoxic-appearing and in no acute distress. HEENT: Atraumatic, normocephalic, pupils equal and reactive bilaterally, negative for conjunctival pallor or scleral icterus, mucous membranes moist, TMs normal bilaterally, throat clear, neck supple, nontender, trachea midline. No drooling or trismus noted. No meningeal signs. No hot potato voice noted. Lungs: Clear to auscultation, breath sounds equal bilaterally, chest nontender. Heart: S1S2, regular rate and rhythm without overt murmur Abdomen: Soft, nondistended, nontender. Negative for masses or hepatosplenomegaly. Negative for costovertebral tenderness. Vaginal: This was done with consent and a lead mobile developer at the bedside. No external lesions or open sores are noted. Cervical office is closed. There is thin milky white discharge in the vaginal vault. No bleeding. No cervical motion tenderness. Tolerated well. Skin: Intact, warm, dry. No lesions or rashes noted. Extremities: Atraumatic, moves all extremities per self without difficulty or deficits. Neurovascular unremarkable. Neuro: Awake, alert, oriented. Cranial nerves II through XII unremarkable. Cerebellum unremarkable. Motor and sensory unremarkable throughout. Exam nonfocal. Notes: After labs were drawn and the ultrasound was completed, the patient went outside to smoke a cigarrette. She was asked to wait until results have returned - she declined waiting in the ED. Ultrasound shows an empty gestational sac, pole should be visualized for sac size which is estimating 8 weeks and 4 days -findings are felt compatible with a blighted ovum. Her quantitative hCG is 7727. She also has bacterial vaginosis and early UTI. Nursing staff attempted to find the patient as she had left to go smoke. She was called several times, using the phone numbers that were left with her contact information, no answer. I did leave a message with the offset plate preparation supervisor about attempting to get a hold of the patient to notify her of the results and need for follow-up with REVENUE SPECIALIST. Diagnostics: CBC, CMP, UA, HCGU, Quant HCG, OB u/s Therapeutics: None Prescription: None Impression: Bacterial Vaginosis UTI Blighted ovum Eloped Plan: Left before being discharged Definitive disposition and diagnosis as appropriate pending reevaluation and review of above. Abdominal Pain Score (Numeric/FACES): 8 - Related Data Allergies Allergy/AdvReac Type Severity Reaction Status Date / Time No Known Allergies Allergy Verified 11/19/19 17:25 Home Meds: Home Meds Albuterol [Ventolin HFA] 1 inh INH BID PRN 07/08/17 [History] ClonazePAM [KlonoPIN] 1 mg PO DAILY 07/08/17 [History] Escitalopram [Lexapro] 10 mg PO DAILY PRN 07/08/17 [History] lamoTRIgine [Lamotrigine] 25 mg PO BID 07/08/17 [History] risperiDONE [RisperiDAL] 0.25 mg PO DAILY 07/08/17 [History] Past Medical History HEENT History: Reports: None Cardiovascular History: Reports: None Respiratory History: Reports: Asthma Gastrointestinal History: Reports: None Genitourinary History: Reports: None REVENUE SPECIALIST History: Reports: Musculoskeletal History: Reports: None Neurological History: Reports: Other (See Below) Other Neuro History: fibromyalgia Psychiatric History: Reports: ADHD, Bipolar, Depression Endocrine/Metabolic History: Reports: None Dermatologic History: Reports: None - Infectious Disease History Infectious Disease History: Reports: None - Past Surgical History HEENT Surgical History: Reports: None Respiratory Surgical History: Reports: None Musculoskeletal Surgical History: Reports: None Social & Family History - Family History Family Medical History: Noncontributory - Caffeine Use Caffeine Use: Reports: None ED ROS GENERAL - Review of Systems Review Of Systems: Comprehensive ROS is negative, except as noted in HPI. ED EXAM, GI/ABD - Physical Exam Exam: See Below (See dictation) Course - Vital Signs Last Recorded V/S: Last Vital Signs Temp 98.6 F 11/19/19 17:27 Pulse 93 11/19/19 17:27 Resp 20 11/19/19 17:27 BP 121/84 11/19/19 17:27 Pulse Ox 98 11/19/19 17:27 - Orders/Labs/Meds Orders: Active Orders 24 hr Category Date Time Status ABO/RH TYPE [BBK] Stat Lab 11/19/19 17:31 Received CHLAMYDIA AND GONORRHEA BY [facility] Stat Lab 11/19/19 17:40 Received CULTURE URINE [RM] Stat Lab 11/19/19 17:32 Received Labs: Laboratory Tests 11/19/19 11/19/19 11/19/19 Range/Units 17:31 17:31 17:31 WBC 10.55 (4.0-11.0) K/uL RBC 4.79 (4.30-5.90) M/uL Hgb 13.1 (12.0-16.0) g/dL Hct 40.9 (36.0-46.0) % MCV 85.4 (80.0-98.0) fL MCH 27.3 (27.0-32.0) pg MCHC 32.0 (31.0-37.0) g/dL RDW Std Deviation 45.9 (28.0-62.0) fl RDW Coeff of Keily 15 (11.0-15.0) % Plt Count 344 (150-400) K/uL MPV 9.90 (7.40-12.00) fL Neut % (Auto) 64.2 (48.0-80.0) % Lymph % (Auto) 27.8 (16.0-40.0) % [place] % (Auto) 5.0 (0.0-15.0) % Eos % (Auto) 2.7 (0.0-7.0) % Baso % (Auto) 0.3 (0.0-1.5) % Neut # (Auto) 6.8 H (1.4-5.7) K/uL Lymph # (Auto) 2.9 H (0.6-2.4) K/uL [place] # (Auto) 0.5 (0.0-0.8) K/uL Eos # (Auto) 0.3 (0.0-0.7) K/uL Baso # (Auto) 0.0 (0.0-0.1) K/uL Nucleated RBC % 0.0 /100WBC Nucleated RBCs # 0 K/uL Sodium 141 (136-145) mmol/L Potassium 3.8 (3.5-5.1) mmol/L Chloride 104 (98-107) mmol/L Carbon Dioxide 27.7 (21.0-32.0) mmol/L BUN 13 (7.0-18.0) mg/dL Creatinine 0.7 (0.6-1.0) mg/dL Est Cr Clr Drug Dosing 94.13 mL/min Estimated GFR (MDRD) > 60.0 ml/min Glucose 83 (74-106) mg/dL Calcium 9.0 (8.5-10.1) mg/dL Total Bilirubin 0.3 (0.2-1.0) mg/dL AST 12 L (15-37) IU/L ALT 21 (14-63) IU/L Alkaline Phosphatase 79 (46-116) U/L Total Protein 7.4 (6.4-8.2) g/dL Albumin 3.9 (3.4-5.0) g/dL Globulin 3.5 (2.6-4.0) g/dL Albumin/Globulin Ratio 1.1 (0.9-1.6) HCG, Quant 7727.0 mIU/mL Urine Color Urine Appearance Urine pH (5.0-8.0) Ur Specific [place] (1.001-1.035) Urine Protein (NEGATIVE) mg/dL Urine Glucose (UA) (NEGATIVE) mg/dL Urine Ketones (NEGATIVE) mg/dL Urine Occult Blood (NEGATIVE) Urine Nitrite (NEGATIVE) Urine Bilirubin (NEGATIVE) Urine Urobilinogen (<2.0) EU/dL Ur Leukocyte Esterase (NEGATIVE) Urine RBC (0-2/HPF) Urine WBC (0-5/HPF) Ur Epithelial Cells (NONE-FEW) Urine Bacteria (NEGATIVE) Urine HCG, Qual (NEGATIVE) Kimmie species DNA (NEGATIVE) Gardnerella DNA Probe (NEGATIVE) Trichomonas DNA Probe (NEGATIVE) 11/19/19 11/19/19 11/19/19 Range/Units 17:32 17:32 17:40 WBC (4.0-11.0) K/uL RBC (4.30-5.90) M/uL Hgb (12.0-16.0) g/dL Hct (36.0-46.0) % MCV (80.0-98.0) fL MCH (27.0-32.0) pg MCHC (31.0-37.0) g/dL RDW Std Deviation (28.0-62.0) fl RDW Coeff of [place] (11.0-15.0) % Plt Count (150-400) K/uL MPV (7.40-12.00) fL Neut % (Auto) (48.0-80.0) % Lymph % (Auto) (16.0-40.0) % [place] % (Auto) (0.0-15.0) % Eos % (Auto) (0.0-7.0) % Baso % (Auto) (0.0-1.5) % Neut # (Auto) (1.4-5.7) K/uL Lymph # (Auto) (0.6-2.4) K/uL [place] # (Auto) (0.0-0.8) K/uL Eos # (Auto) (0.0-0.7) K/uL Baso # (Auto) (0.0-0.1) K/uL Nucleated RBC % /100WBC Nucleated RBCs # K/uL Sodium (136-145) mmol/L Potassium (3.5-5.1) mmol/L Chloride (98-107) mmol/L Carbon Dioxide (21.0-32.0) mmol/L BUN (7.0-18.0) mg/dL Creatinine (0.6-1.0) mg/dL Est Cr Clr Drug Dosing mL/min Estimated GFR (MDRD) ml/min Glucose (74-106) mg/dL Calcium (8.5-10.1) mg/dL Total Bilirubin (0.2-1.0) mg/dL AST (15-37) IU/L ALT (14-63) IU/L Alkaline Phosphatase (46-116) U/L Total Protein (6.4-8.2) g/dL Albumin (3.4-5.0) g/dL Globulin (2.6-4.0) g/dL Albumin/Globulin Ratio (0.9-1.6) HCG, Quant mIU/mL Urine Color YELLOW Urine Appearance SLT CLOUDY Urine pH 6.5 (5.0-8.0) Ur Specific [place] 1.025 (1.001-1.035) Urine Protein NEGATIVE (NEGATIVE) mg/dL Urine Glucose (UA) NEGATIVE (NEGATIVE) mg/dL Urine Ketones NEGATIVE (NEGATIVE) mg/dL Urine Occult Blood NEGATIVE (NEGATIVE) Urine Nitrite NEGATIVE (NEGATIVE) Urine Bilirubin NEGATIVE (NEGATIVE) Urine Urobilinogen 0.2 (<2.0) EU/dL Ur Leukocyte Esterase TRACE H (NEGATIVE) Urine RBC 0-1 (0-2/HPF) Urine WBC 1-3 (0-5/HPF) Ur Epithelial Cells MODERATE (NONE-FEW) Urine Bacteria FEW (NEGATIVE) Urine HCG, Qual POSITIVE (NEGATIVE) Kimmie species DNA NEGATIVE (NEGATIVE) Gardnerella DNA Probe POSITIVE H (NEGATIVE) Trichomonas DNA Probe NEGATIVE (NEGATIVE) Departure - Departure Time of Disposition: 19:11 Disposition: Eloped 07 Clinical Impression: Blighted ovum, Bacterial vaginosis UTI (urinary tract infection) Qualifiers: Urinary tract infection type: site unspecified Hematuria presence: without hematuria Qualified Code(s): N39.0 - Urinary tract infection, site not specified - Discharge Information Referrals: PCP,None [Primary Care Provider] - Forms: ED Department Discharge Sepsis Event Note - Focused Exam Vital Signs: Vital Signs Temp Pulse Resp BP Pulse Ox 11/19/19 17:27 98.6 F 93 20 121/84 98 Date Exam was Performed: 11/19/19 Time Exam was Performed: 18:58 - My Orders Last 24 Hours: My Active Orders 11/19/19 17:31 ABO/RH TYPE [BBK] Stat 11/19/19 17:32 CULTURE URINE [RM] Stat 11/19/19 17:40 CHLAMYDIA AND GONORRHEA BY [facility] Stat - Assessment/Plan Last 24 Hours: My Active Orders 11/19/19 17:31 ABO/RH TYPE [BBK] Stat 11/19/19 17:32 CULTURE URINE [RM] Stat 11/19/19 17:40 CHLAMYDIA AND GONORRHEA BY [facility] Stat
[2019-11-19 17:58] LABS: BLOOD UREA NITROGEN,BUN 13 mg/dL (7.0-18.0); CARBON DIOXIDE,CO2 27.7 mmol/L (21.0-32.0); CHLORIDE,CL 104 mmol/L (98-107); GLUCOSE RANDOM 83 mg/dL (74-106); POTASSIUM,K 3.8 mmol/L (3.5-5.1); SODIUM,NA 141 mmol/L (136-145)
--- NOTE | 2019-11-19 18:53 | US ---
1st trimester obstetrical ultrasound: Multiple real-time images were obtained transvaginally. Dates: JACINTA 06/26/20, gestational age 8 weeks 4 days Single intrauterine gestational sac is seen. No pole or yolk sac is seen. Small amount of debris is noted within the gestational sac. Findings most likely represent blighted ovum. No adnexal abnormalities are appreciated. Measurements: Gestational sac: 3.43 cm - 8 weeks 4 days Impression: 1. Empty gestational sac, pole should be visualized for sac size and findings are felt compatible with blighted ovum. Diagnostic code #5 This report was dictated in [place] Standard Time
== END 2019-11-19 19:10 | disposition left against medical advice (07) ==
LOC: MW.ED 17:13
DX: O02.0 Blighted ovum and nonhydatidiform mole (principal); O23.41 Unspecified infection of urinary tract in pregnancy, first trimester; O23.591 Infection of other part of genital tract in pregnancy, first trimester; B96.89 Other specified bacterial agents as the cause of diseases classified elsewhere; O99.341 Other mental disorders complicating pregnancy, first trimester; F32.9 Major depressive disorder, single episode, unspecified; Z79.899 Other long term (current) drug therapy; Z3A.08 8 weeks gestation of pregnancy
CPT/HCPCS: 36415; 76801; 76801-26; 80053; 81001; 81025; 84702; 85025; 86900; 86901; 87086; 87480; 87491; 87510; 87591; 87660; 99284-25

== ENCOUNTER 2019-11-22 00:47 | Emergency (ER) | payer MEDICAID, OTHER ==
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
== END 2019-11-22 01:35 ==
LOC: MW.ED 00:47
DX: S20.112A Abrasion of breast, left breast, initial encounter (principal); O20.9 Hemorrhage in early pregnancy, unspecified; O99.511 Diseases of the respiratory system complicating pregnancy, first trimester; J45.909 Unspecified asthma, uncomplicated; O99.341 Other mental disorders complicating pregnancy, first trimester; F31.9 Bipolar disorder, unspecified; Z79.899 Other long term (current) drug therapy; Z3A.01 Less than 8 weeks gestation of pregnancy
CPT/HCPCS: 99284